=== PATIENT | male | born 1950 | race Two or more races ===

== ENCOUNTER → 2018-12-05 | Day surgery (SDC) | payer OTHER, MEDICAID ==
[2018-11-29 11:54] LABS: Basophils # (auto) 0 uL; Basophils % (auto) 0.7 % (0.0-2.0); Eosinophils # (auto) 0.2 uL; Eosinophils % (auto) 2.9 % (0.0-7.0); Hemoglobin 13.5 g/dL (13.5-17.5); Lymphocytes # (auto) 0.8 uL; Lymphocytes % (auto) 13.2 % (10.0-50.0); Mean Corpuscular Volume 81.7 fL (80.0-100.0); Monocytes # (auto) 0.4 uL; Monocytes % (auto) 7.1 % (0.0-12.0); Neutrophils # (auto) 4.7 uL; Neutrophils % (auto) 76.1 % (37.0-80.0); Platelet Count (auto) 162 10^3/uL (140-450); Red Blood Cells 5.02 10^6/uL (4.5-5.90); Red Cell Distribution Width 14.3 % (11.8-14.3); White Blood Cell 6.2 10^3/uL (4.4-10.8)
[2018-11-29 11:57] LABS: Urine Bacteria NONE SEEN /hpf (None Seen); Urine Blood TRACE /uL (Negative); Urine Hyaline Cast MOD /lpf (0 - 2); Urine Mucus FEW (None Seen); Urine Specific Gravity 1.025 (1.001-1.035); Urine WBC <1 /hpf (0 - 3)
[2018-11-29 12:10] LABS: INR 0.96 (0.9-1.15); Partial Thromboplastin Time 25.7 sec (23.64-32.05)
[2018-11-29 12:45] LABS: Potassium 3.8 mmol/L (3.5-5.1)
[2018-11-29 12:56] LABS: Bilirubin, Total 0.7 mg/dL (0.2-1.0); Calcium 8.8 mg/dL (8.5-10.1); Total Protein 7.4 g/dL (6.4-8.2)
[~2018-12-05] VITALS: Ht 172.7 cm; Wt 76.7 kg
[~2018-12-05] MED LIST: ASPI325T4 PO; FAMO-12 PO; GABA100C9 PO; HYDR-4833 PO; INSLANTI SC; MAGN400T5 OR; MIDAZOLAM HCL 1MG/1ML-2 ML VIAL ONE; NIFE30TA76 PO; ONDANSETRON HCL 4 MG/2 ML VIAL IV PRN; PROPOFOL 10 MG/ML 20 ML IV ONE; ROPIVACAINE 0.5% (5MG/ML) 20ML AMPULE IJ ONE; SUCCINYLCHOLINE CHLORIDE 20 MG/ML 10ML VIAL IV ONE; ceFAZolin 1GM/50ML 50 ML IV ONE; ePHEDrine SULFATE 50 MG/ML AMP IV PRN; fentaNYL CITRATE 100 MCG/2 ML VL IV ONE; fentaNYL CITRATE 100 MCG/2 ML VL IV PRN; fentaNYL CITRATE 100 MCG/2 ML VL ONE; hydrALAZINE HCL 20 MG/ML VL IV PRN; methylPREDNISolone ACETATE 80 MG/ML VL ONE
[2018-12-05 08:50] VITALS: BP 143/82
== END | disposition home or self-care (01) ==
LOC: SUR 06:02
PROVIDERS: ATTEND Podiatrist Foot & Ankle Surgery
DX: M72.2 Plantar fascial fibromatosis (principal); M21.6X2 Other acquired deformities of left foot; I10 Essential (primary) hypertension; E11.9 Type 2 diabetes mellitus without complications; F17.210 Nicotine dependence, cigarettes, uncomplicated; Z98.890 Other specified postprocedural states; Z79.84 Long term (current) use of oral hypoglycemic drugs; Z86.73 Personal history of transient ischemic attack (TIA), and cerebral infarction without residual deficits; Z79.4 Long term (current) use of insulin
CPT/HCPCS: 29893; 29999; 36415; 80053; 81001; 82962; 85025; 85610; 85730; J0330; J0690; J1040; J2250; J2704; J2795; J3010

== ENCOUNTER 2023-03-03 08:26 | Inpatient (IN) | payer OTHER, MEDICAID ==
[~2023-03-03] VITALS: Ht 172.7 cm; Wt 65.6 kg
[~2023-03-03 08:26] MED LIST changes: -ASPI325T4 PO; +GABA-1308 PO; -GABA100C9 PO; -HYDR-4833 PO; +HYDR-531 PO; +HYDR25TA5 PO; +MAGN400T40 PO; -MAGN400T5 OR; -MIDAZOLAM HCL 1MG/1ML-2 ML VIAL ONE; +NIFE1TAB31 PO; -NIFE30TA76 PO; -ONDANSETRON HCL 4 MG/2 ML VIAL IV PRN; -PROPOFOL 10 MG/ML 20 ML IV ONE; -ROPIVACAINE 0.5% (5MG/ML) 20ML AMPULE IJ ONE; -SUCCINYLCHOLINE CHLORIDE 20 MG/ML 10ML VIAL IV ONE; -ceFAZolin 1GM/50ML 50 ML IV ONE; -ePHEDrine SULFATE 50 MG/ML AMP IV PRN; -fentaNYL CITRATE 100 MCG/2 ML VL IV ONE; -fentaNYL CITRATE 100 MCG/2 ML VL IV PRN; -fentaNYL CITRATE 100 MCG/2 ML VL ONE; -hydrALAZINE HCL 20 MG/ML VL IV PRN; -methylPREDNISolone ACETATE 80 MG/ML VL ONE
[2023-03-03 08:40] VITALS: PULSE 62; RESP 13
[2023-03-03] MEDS ORDERED: D5W 5% 1,000 ML IV ONE (08:45)
[2023-03-03 09:26] LABS: Basophils # (auto) 0 10 ^3/uL (0-0.2); Basophils % (auto) 0.2 % (0.0-2.0); Eosinophils # (auto) 0 10 ^3/uL (0-0.8); Eosinophils % (auto) 0.1 % (0.0-7.0); Hematocrit 37.9 % (41.0-53.0); Hemoglobin 12.1 g/dL (13.5-17.5); Lymphocytes # (auto) 0.3 10 ^3/uL (0.4-5.4); Lymphocytes % (auto) 2.9 % (10.0-50.0); Mean Corpuscular Hemoglobin 27.6 pg (28.0-32.0); Mean Corpuscular Volume 86.4 fL (80.0-100.0); Monocytes # (auto) 0.3 10 ^3/uL (0-1.3); Monocytes % (auto) 3.3 % (0.0-12.0); Neutrophils # (auto) 8.9 10 ^3/uL (1.6-8.6); Neutrophils % (auto) 93.5 % (37.0-80.0); Red Blood Cells 4.39 10^6/uL (4.5-5.90); White Blood Cell 9.5 10^3/uL (4.4-10.8)
[2023-03-03 09:43] LABS: Alanine Aminotransferase 216 U/L (7-40); Albumin 3.5 g/dL (3.2-4.8); Alkaline Phosphatase 134 U/L (46-116); Anion Gap 8 (5-15); Aspartate Aminotransferase 32 U/L (13-40); BUN/Creatinine Ratio 6.9 (10.0-20.0); Bilirubin, Total 0.4 mg/dL (0.2-1.0); Blood Urea Nitrogen 14 mg/dL (9-23); Calcium 8.2 mg/dL (8.5-10.1); Carbon Dioxide 24 mmol/L (20-30); Chloride 111 mmol/L (98-107); Glucose 93 mg/dL (74-106); INR 1.25 (0.9-1.15); Potassium 3.5 mmol/L (3.5-5.1); Prothrombin Time 12.9 sec (9.3-11.8); Sodium 143 mmol/L (136-145); Total Protein 5.8 g/dL (5.7-8.2)
[2023-03-03 10:41] LABS: Magnesium 1.4 mg/dL (1.6-2.6)
[2023-03-03] MEDS ORDERED: DEXTROSE (50%) 50ML SYRG IV PRN (10:45)
[2023-03-03] MEDS ORDERED: ACETAMINOPHEN 325 MG TAB PO PRN (11:00)
[2023-03-03] MEDS ORDERED: SODIUM CHLORIDE 0.9% 1,000 ML IV ONE (11:00)
[2023-03-03] MEDS: SODIUM CHLORIDE 0.9% 1,000 ML IV SCH (11:00)
[2023-03-03] MEDS: ACCU-CHEK COMFORT CURVE STRIP VI SCH ×3 (11:30→21:52)
[2023-03-03] MEDS: InsuLIN REG 1unit/0.01ml Soln (100units/ml) SC SCH ×4 (11:30→22:00)
[2023-03-03] MEDS ORDERED: hydroCHLOROthiazide 25 MG TAB PO ONE (12:45)
[2023-03-03] MEDS ORDERED: MAGNESIUM OXIDE 400 MG TAB PO ONE (12:45)
[2023-03-03 13:15] LABS: Urine Bacteria FEW /hpf (None Seen); Urine Blood Negative /uL (Negative); Urine Clarity Clear (Clear); Urine Color Colorless (Yellow); Urine Protein, UAD TRACE (Negative); Urine Urobilinogen Normal (Negative); Urine WBC <1 /hpf (0 - 3); Urine pH 5.5 (5.0-8.0)
[2023-03-03 13:16] LABS: Protein, Urine 32.8 mg/dL (0.0-11.9)
[2023-03-03 13:19] LABS: Creatinine, Urine 53.73 mg/dL (30.0-125.0)
[2023-03-03] MEDS ORDERED: GABAPENTIN 100 MG CAP PO SCH (14:00)
[2023-03-03] MEDS: HYDROcodone-ACET 10/325MG TAB PO PRN ×4 (15:39→23:34)
[2023-03-03 19:30] VITALS: PULSE 82; RESP 14
[2023-03-03 19:47] VITALS: PULSE 82; RESP 14
[2023-03-03] MEDS ORDERED: HYDROcodone-ACET 10/325MG TAB PO PRN (20:45)
[2023-03-03] MEDS ORDERED: GABAPENTIN 400 MG CAP PO SCH (22:00)
[2023-03-03] MEDS: GABAPENTIN 300 MG CAP PO SCH (22:03)
[2023-03-03] MEDS: FAMOTIDINE 20 MG TAB PO SCH (22:03)
[2023-03-04] MEDS: ACCU-CHEK COMFORT CURVE STRIP VI SCH ×11 (02:01→22:03)
[2023-03-04] MEDS: SODIUM CHLORIDE 0.9% 1,000 ML IV SCH ×2 (03:48→22:03)
[2023-03-04 04:51] LABS: Basophils # (auto) 0 10 ^3/uL (0-0.2); Basophils % (auto) 0.7 % (0.0-2.0); Eosinophils # (auto) 0.2 10 ^3/uL (0-0.8); Eosinophils % (auto) 3.3 % (0.0-7.0); Hematocrit 33.8 % (41.0-53.0); Hemoglobin 11.2 g/dL (13.5-17.5); Lymphocytes # (auto) 0.6 10 ^3/uL (0.4-5.4); Lymphocytes % (auto) 12.7 % (10.0-50.0); Mean Corpuscular Hemoglobin 28.3 pg (28.0-32.0); Mean Corpuscular Hgb Conc. 33.3 g/dL (32.0-36.0); Monocytes # (auto) 0.3 10 ^3/uL (0-1.3); Monocytes % (auto) 6.5 % (0.0-12.0); Neutrophils # (auto) 3.6 10 ^3/uL (1.6-8.6); Neutrophils % (auto) 76.8 % (37.0-80.0); Red Blood Cells 3.97 10^6/uL (4.5-5.90); Red Cell Distribution Width 15.3 % (11.8-14.3); White Blood Cell 4.8 10^3/uL (4.4-10.8)
[2023-03-04] MEDS: HYDROcodone-ACET 10/325MG TAB PO PRN ×3 (06:03→17:38)
[2023-03-04] MEDS: InsuLIN REG 1unit/0.01ml Soln (100units/ml) SC SCH ×4 (06:30→22:00)
[2023-03-04 08:30] VITALS: PULSE 85; RESP 16; O2SAT 98
[2023-03-04 08:52] LABS: Chloride 111 mmol/L (98-107); Potassium 3.2 mmol/L (3.5-5.1); Sodium 144 mmol/L (136-145)
[2023-03-04 08:53] LABS: Anion Gap 4 (5-15); Carbon Dioxide 29 mmol/L (20-30)
[2023-03-04 08:58] LABS: Blood Urea Nitrogen 14 mg/dL (9-23); Glucose 128 mg/dL (74-106)
[2023-03-04] MEDS: NIFEdipine ER 30 MG TAB PO SCH (10:47)
[2023-03-04] MEDS: MAGNESIUM OXIDE 400 MG TAB PO SCH (10:48)
[2023-03-04] MEDS: FAMOTIDINE 20 MG TAB PO SCH ×2 (10:48→22:03)
[2023-03-04] MEDS: hydroCHLOROthiazide 25 MG TAB PO SCH (10:48)
[2023-03-04] MEDS: ENOXAPARIN SOD 40 MG/0.4 ML SYRINGE SC SCH (10:48)
[2023-03-04 18:11] VITALS: BP 146/81; PULSE 76; RESP 18; TEMP 97.9; O2SAT 96
[2023-03-04 20:00] VITALS: PULSE 67
[2023-03-04 22:00] VITALS: BP 128/79; PULSE 72; RESP 18; O2SAT 98
[2023-03-04] MEDS: GABAPENTIN 300 MG CAP PO SCH (22:02)
[2023-03-05] MEDS: ACCU-CHEK COMFORT CURVE STRIP VI SCH ×7 (00:01→11:22)
[2023-03-05 05:00] VITALS: BP 137/81; PULSE 67; RESP 18; O2SAT 99
[2023-03-05 05:15] VITALS: TEMP 97.9
[2023-03-05] MEDS: InsuLIN REG 1unit/0.01ml Soln (100units/ml) SC SCH ×2 (06:14→11:22)
[2023-03-05] MEDS: HYDROcodone-ACET 10/325MG TAB PO PRN ×2 (06:15)
[2023-03-05 08:00] VITALS: PULSE 66
[2023-03-05 09:00] VITALS: BP_SYST 154; BP_SYST 161; BP_SYST 98; BP_DIAS 63; BP_DIAS 71; BP_DIAS 80; PULSE 67; PULSE 72; PULSE 84; RESP 18; TEMP 97.8; O2SAT 100; O2SAT 99
[2023-03-05] MEDS: NIFEdipine ER 30 MG TAB PO SCH (10:00)
[2023-03-05] MEDS: FAMOTIDINE 20 MG TAB PO SCH (10:12)
[2023-03-05] MEDS: MAGNESIUM OXIDE 400 MG TAB PO SCH (10:12)
[2023-03-05] MEDS: ENOXAPARIN SOD 40 MG/0.4 ML SYRINGE SC SCH (10:12)
[2023-03-05] MEDS: hydroCHLOROthiazide 25 MG TAB PO SCH (10:12)
[2023-03-05 11:32] LABS: Chloride 106 mmol/L (98-107); Potassium 3.5 mmol/L (3.5-5.1); Sodium 140 mmol/L (136-145)
[2023-03-05 11:33] LABS: Anion Gap 2 (5-15); Calcium 8.3 mg/dL (8.5-10.1); Carbon Dioxide 32 mmol/L (20-30)
[2023-03-05 11:34] VITALS: BP 154/80; TEMP 36.6
[2023-03-05 11:38] LABS: BUN/Creatinine Ratio 10.9 (10.0-20.0); Blood Urea Nitrogen 15 mg/dL (9-23); Glucose 125 mg/dL (74-106)
[2023-03-05] MEDS: SODIUM CHLORIDE 0.9% 1,000 ML IV SCH (12:35)
== END 2023-03-05 12:55 | disposition home or self-care (01) | DRG 639 ==
LOC: EDBD 08:26 → ER 08:26 → TELE 10:56 → TELE-WESTW 03-04 18:48
PROVIDERS: ADMIT Nurse Practitioner Family; ATTEND Nurse Practitioner Family
DX: E11.649 Type 2 diabetes mellitus with hypoglycemia without coma (principal); N17.9 Acute kidney failure, unspecified; I12.9 Hypertensive chronic kidney disease with stage 1 through stage 4 chronic kidney disease, or unspecified chronic kidney disease; E11.22 Type 2 diabetes mellitus with diabetic chronic kidney disease; N18.32 Chronic kidney disease, stage 3b; K80.20 Calculus of gallbladder without cholecystitis without obstruction; E78.00 Pure hypercholesterolemia, unspecified; E11.42 Type 2 diabetes mellitus with diabetic polyneuropathy; Z79.4 Long term (current) use of insulin; Z86.73 Personal history of transient ischemic attack (TIA), and cerebral infarction without residual deficits
CPT/HCPCS: 36415; 70450; 71045; 76705; 78582; 80048; 80053; 81001; 82570; 82962; 83036; 83735; 83930; 84156; 84300; 85025; 85379; 85610; 85730; 87086; 93306; 93886; 93971; 97163; G0378

== ENCOUNTER 2023-06-15 07:25 | Inpatient (IN) | payer OTHER, MEDICAID ==
[~2023-06-15] VITALS: Ht 182.9 cm; Wt 66.0 kg
[2023-06-15 07:55] VITALS: PULSE 86; RESP 15; O2SAT 93
[2023-06-15 08:20] LABS: Basophils # (auto) 0 10 ^3/uL (0-0.2); Basophils % (auto) 0.2 % (0.0-2.0); Eosinophils # (auto) 0 10 ^3/uL (0-0.8); Eosinophils % (auto) 0.1 % (0.0-7.0); Hemoglobin 12.4 g/dL (13.5-17.5); Lymphocytes # (auto) 0.5 10 ^3/uL (0.4-5.4); Mean Corpuscular Hemoglobin 28.4 pg (28.0-32.0); Mean Corpuscular Hgb Conc. 32.7 g/dL (32.0-36.0); Mean Corpuscular Volume 86.8 fL (80.0-100.0); Monocytes # (auto) 0.7 10 ^3/uL (0-1.3); Neutrophils # (auto) 4.9 10 ^3/uL (1.6-8.6); Neutrophils % (auto) 80.7 % (37.0-80.0); Nucleated Red Blood Cells % 0.1 %; Red Blood Cells 4.38 10^6/uL (4.5-5.90); Red Cell Distribution Width 15.9 % (11.8-14.3); White Blood Cell 6.1 10^3/uL (4.4-10.8)
[2023-06-15] MEDS: SODIUM CHLORIDE 0.9% 1,000 ML IV ONE (08:20)
[2023-06-15 08:21] LABS: Anion Gap 10 (5-15); Carbon Dioxide 23 mmol/L (20-30); Chloride 110 mmol/L (98-107); Potassium 3.5 mmol/L (3.5-5.1); Sodium 143 mmol/L (136-145)
[2023-06-15 08:22] LABS: Calcium 8.4 mg/dL (8.5-10.1)
[2023-06-15 08:27] LABS: BUN/Creatinine Ratio 18.5 (10.0-20.0); Blood Urea Nitrogen 55 mg/dL (9-23); Glucose 92 mg/dL (74-106)
[2023-06-15] MEDS ORDERED: DEXTROSE (50%) 50ML SYRG IV PRN (10:15)
[2023-06-15 10:59] LABS: INR 1.25 (0.9-1.15)
[2023-06-15 11:02] LABS: Phosphorus 4.7 mg/dL (2.4-5.1)
[2023-06-15 11:03] LABS: Base Excess -4.5 mmol/L (-2.0-2.0)
[2023-06-15] MEDS: SODIUM CHLORIDE 0.9% 1,000 ML IV SCH (11:10)
[2023-06-15] MEDS: cefTRIAXone 1GM/50ML D5W 50 ML IV ONE (11:21)
[2023-06-15] MEDS: PANTOPRAZOLE 40 MG/10 ML VIAL INJ IV ONE (11:23)
[2023-06-15 11:49] LABS: Creatinine, Urine 67.15 mg/dL (30.0-125.0)
[2023-06-15 11:51] LABS: Amphetamine Screen, Urine Neg (NEGATIVE)
[2023-06-15] MEDS: AZITHROMYCIN 500MG/ 250ML 250 ML IV ONE (11:52)
[2023-06-15 11:53] LABS: Barbiturate Scree,Urine Neg (NEGATIVE); Benzodiazephine Screen, Urine Neg (NEGATIVE); Cannabinoid Screen, Urine Neg (NEGATIVE); Cocaine Screen, Urine Neg (NEGATIVE); Opiate Scree,Urine Pos (NEGATIVE); Phencyclidine Screen, Urine Neg (NEGATIVE)
[2023-06-15 11:57] LABS: Urine Bacteria FEW /hpf (None Seen); Urine Blood TRACE /uL (Negative); Urine Budding Yeast MODERATE /hpf (None Seen); Urine Clarity Clear (Clear); Urine Color Light-Yellow (Yellow); Urine Protein, UAD TRACE (Negative); Urine Specific Gravity 1.014 (1.001-1.035); Urine Urobilinogen Normal (Negative); Urine WBC 1 /hpf (0 - 3); Urine pH 5.5 (5.0-9.0)
[2023-06-15] MEDS: InsuLIN REG 1unit/0.01ml Soln (100units/ml) SC SCH (12:00)
[2023-06-15] MEDS: ACCU-CHEK COMFORT CURVE STRIP VI SCH (12:11)
[2023-06-15 13:00] VITALS: BP 128/70; PULSE 82; RESP 18; TEMP 98.4; O2SAT 95
[2023-06-15 13:28] VITALS: BP 128/70; PULSE 82; RESP 18; TEMP 98.4; O2SAT 95
[2023-06-15 17:00] VITALS: BP 115/75; PULSE 75; RESP 18; TEMP 98.8; O2SAT 94
[2023-06-15] MEDS ORDERED: ASPI325T6 PO (17:58)
[2023-06-15 20:00] VITALS: PULSE 88; RESP 18; O2SAT 97
[2023-06-15 21:00] VITALS: BP 118/68; PULSE 86; RESP 18; TEMP 99.5; O2SAT 95
[2023-06-16] VITALS (7 sets, daily range): BP systolic 103–145; BP diastolic 60–95; PULSE 75–105; RESP 17–20; TEMP 98.5–99.2; O2SAT 90–99
[2023-06-16 07:42] LABS: Triglycerides 56 mg/dL (< 150)
[2023-06-16 07:43] LABS: LDL Cholesterol 8 mg/dL (< 100)
[2023-06-16 07:44] LABS: Cholesterol 57 mg/dL (< 200); HDL Cholesterol 34 mg/dL (40-59)
[2023-06-16 08:06] LABS: RPR Non Reactive (Non Reactive)
[2023-06-16] MEDS ORDERED: CYA100I PO (08:21)
[2023-06-16] MEDS ORDERED: EMPA1TAB3 PO (08:21)
[2023-06-16] MEDS ORDERED: GABA-1308 PO (08:21)
[2023-06-16] MEDS ORDERED: ATOR20TA PO (08:21)
[2023-06-16] MEDS ORDERED: AML5T PO (08:21)
[2023-06-16] MEDS ORDERED: CHOL400C7 PO (08:21)
[2023-06-16] MEDS: cefTRIAXone 1GM/50ML D5W 50 ML IV SCH (08:50)
[2023-06-16] MEDS: PANTOPRAZOLE 40 MG/10 ML VIAL INJ IV SCH (08:54)
[2023-06-16] MEDS: ENOXAPARIN SOD 30 MG/0.3 ML SYRINGE SC SCH (08:55)
[2023-06-16] MEDS: AZITHROMYCIN 500MG/ 250ML 250 ML IV SCH (08:55)
[2023-06-16] MEDS ORDERED: ENOXAPARIN SOD 40 MG/0.4 ML SYRINGE SC SCH (10:00)
[2023-06-16 13:14] LABS: Rapid Influenza A Negative (Negative); Rapid Influenza B Negative (Negative)
[2023-06-16 13:15] LABS: COVID19 ANTIGEN SOFIA FIA NEGATIVE (NEGATIVE)
[2023-06-16 14:02] LABS: Amphetamine Screen, Urine Neg (NEGATIVE); Barbiturate Scree,Urine Neg (NEGATIVE); Benzodiazephine Screen, Urine Neg (NEGATIVE); Cannabinoid Screen, Urine Neg (NEGATIVE); Cocaine Screen, Urine Neg (NEGATIVE); Opiate Scree,Urine Neg (NEGATIVE); Phencyclidine Screen, Urine Neg (NEGATIVE)
[2023-06-16] MEDS: LORazepam 2MG/ML-1ML VIAL IV PRN (16:44)
[2023-06-16] MEDS: FLECAINIDE ACETATE 50 MG TAB PO SCH (22:00)
[2023-06-16] MEDS: APIXABAN 2.5 MG TAB PO SCH (22:00)
[2023-06-16] MEDS: APIXABAN 2.5 MG TAB PO ONE (22:32)
[2023-06-16] MEDS: FLECAINIDE ACETATE 50 MG TAB PO ONE (22:34)
[2023-06-16] MEDS: METOPROLOL TARTRATE 25 MG TAB PO SCH (22:35)
[2023-06-16] MEDS: HALOPERIDOL LACTATE 5 MG/ML INJ VIAL IM PRN (22:46)
[2023-06-17] VITALS (8 sets, daily range): BP systolic 120–153; BP diastolic 63–92; PULSE 62–85; RESP 16–20; TEMP 97.8–99.2; O2SAT 93–98
[2023-06-17 06:42] LABS: Basophils # (auto) 0 10 ^3/uL (0-0.2); Basophils % (auto) 0.2 % (0.0-2.0); Eosinophils # (auto) 0.1 10 ^3/uL (0-0.8); Eosinophils % (auto) 1.2 % (0.0-7.0); Hematocrit 39.8 % (41.0-53.0); Lymphocytes # (auto) 0.6 10 ^3/uL (0.4-5.4); Lymphocytes % (auto) 7.9 % (10.0-50.0); Mean Corpuscular Hemoglobin 28.4 pg (28.0-32.0); Mean Corpuscular Hgb Conc. 32.7 g/dL (32.0-36.0); Mean Corpuscular Volume 86.8 fL (80.0-100.0); Monocytes # (auto) 0.5 10 ^3/uL (0-1.3); Monocytes % (auto) 6.8 % (0.0-12.0); Neutrophils # (auto) 6.3 10 ^3/uL (1.6-8.6); Neutrophils % (auto) 83.9 % (37.0-80.0); Red Blood Cells 4.59 10^6/uL (4.5-5.90); Red Cell Distribution Width 15.3 % (11.8-14.3); White Blood Cell 7.5 10^3/uL (4.4-10.8)
[2023-06-17 06:54] LABS: Alanine Aminotransferase 27 U/L (7-40); Alkaline Phosphatase 94 U/L (46-116); Anion Gap 11 (5-15); Blood Urea Nitrogen 22 mg/dL (9-23); Calcium 8.8 mg/dL (8.5-10.1); Carbon Dioxide 24 mmol/L (20-30); Chloride 111 mmol/L (98-107); Glucose 92 mg/dL (74-106); Potassium 2.7 mmol/L (3.5-5.1); Sodium 146 mmol/L (136-145)
[2023-06-17 06:55] LABS: Albumin 3.3 g/dL (3.2-4.8); Aspartate Aminotransferase 26 U/L (13-40); Bilirubin, Total 0.6 mg/dL (0.2-1.0); Total Protein 5.4 g/dL (5.7-8.2)
[2023-06-17] MEDS: MAGNESIUM SULFATE 1GM/100ML 100 ML IV ONE (13:06)
[2023-06-17] MEDS: POTASSIUM EFFERVESENT TAB 25 MEQ PO ONE (15:38)
[2023-06-17] MEDS: POTASSIUM CHLORIDE 40 MEQ, LIDOCAINE 1% (LOCAL ANESTH.) 4 ML in SODIUM CHL 0.9% 250 ML IV ONE (15:39)
[2023-06-17] MEDS: D5W/SOD CHL 0.45% 1,000 ML IV SCH (17:15)
[2023-06-17] MEDS: METOPROLOL TARTRATE 25 MG TAB PO SCH (22:16)
[2023-06-18] VITALS (8 sets, daily range): BP systolic 117–172; BP diastolic 72–90; PULSE 68–83; RESP 16–20; TEMP 98–99.2; O2SAT 95–99
[2023-06-18 06:33] LABS: Basophils # (auto) 0 10 ^3/uL (0-0.2); Basophils % (auto) 0.2 % (0.0-2.0); Eosinophils # (auto) 0.1 10 ^3/uL (0-0.8); Hematocrit 40.4 % (41.0-53.0); Hemoglobin 13.3 g/dL (13.5-17.5); Lymphocytes # (auto) 0.8 10 ^3/uL (0.4-5.4); Lymphocytes % (auto) 10.4 % (10.0-50.0); Mean Corpuscular Hemoglobin 27.8 pg (28.0-32.0); Mean Corpuscular Hgb Conc. 32.9 g/dL (32.0-36.0); Mean Corpuscular Volume 84.4 fL (80.0-100.0); Monocytes # (auto) 0.6 10 ^3/uL (0-1.3); Monocytes % (auto) 8.1 % (0.0-12.0); Neutrophils # (auto) 5.8 10 ^3/uL (1.6-8.6); Neutrophils % (auto) 80.3 % (37.0-80.0); Nucleated Red Blood Cells % 0.1 %; Red Blood Cells 4.79 10^6/uL (4.5-5.90); Red Cell Distribution Width 15.1 % (11.8-14.3); White Blood Cell 7.3 10^3/uL (4.4-10.8)
[2023-06-18 06:46] LABS: Anion Gap 6 (5-15); Carbon Dioxide 29 mmol/L (20-30); Chloride 107 mmol/L (98-107); Potassium 3.2 mmol/L (3.5-5.1); Sodium 142 mmol/L (136-145)
[2023-06-18 06:48] LABS: Calcium 8.1 mg/dL (8.7-10.4)
[2023-06-18 06:52] LABS: BUN/Creatinine Ratio 9.5 (10.0-20.0); Blood Urea Nitrogen 12 mg/dL (9-23); Glucose 105 mg/dL (74-106)
[2023-06-18 06:53] LABS: Magnesium 1.2 mg/dL (1.6-2.6)
[2023-06-18] MEDS: POTASSIUM EFFERVESENT TAB 25 MEQ PO ONE (12:18)
[2023-06-19] VITALS (13 sets, daily range): BP systolic 122–144; BP diastolic 68–86; PULSE 59–77; RESP 18–22; TEMP 98.1–98.9; O2SAT 93–99
[2023-06-19] MEDS: HYDROcodone-ACET 7.5/325MG TAB PO ONE (01:23)
[2023-06-19 06:48] LABS: Basophils # (auto) 0 10 ^3/uL (0-0.2); Basophils % (auto) 0.5 % (0.0-2.0); Eosinophils # (auto) 0.1 10 ^3/uL (0-0.8); Eosinophils % (auto) 1.6 % (0.0-7.0); Hematocrit 39.1 % (41.0-53.0); Hemoglobin 12.7 g/dL (13.5-17.5); Lymphocytes # (auto) 0.7 10 ^3/uL (0.4-5.4); Lymphocytes % (auto) 10.8 % (10.0-50.0); Mean Corpuscular Hemoglobin 27.6 pg (28.0-32.0); Mean Corpuscular Hgb Conc. 32.5 g/dL (32.0-36.0); Mean Corpuscular Volume 84.9 fL (80.0-100.0); Monocytes # (auto) 0.6 10 ^3/uL (0-1.3); Monocytes % (auto) 10.1 % (0.0-12.0); Neutrophils # (auto) 4.7 10 ^3/uL (1.6-8.6); Nucleated Red Blood Cells % 0.1 %
[2023-06-19 07:31] LABS: Protein, Urine 125.3 mg/dL (0.0-11.9)
[2023-06-19 07:34] LABS: Creatinine, Urine 113.03 mg/dL (30.0-125.0)
[2023-06-19 07:34] LABS: Anion Gap 6 (5-15); Calcium 8.1 mg/dL (8.5-10.1); Carbon Dioxide 30 mmol/L (20-30); Chloride 103 mmol/L (98-107); Potassium 3.5 mmol/L (3.5-5.1); Sodium 139 mmol/L (136-145)
[2023-06-19 07:39] LABS: Glucose 113 mg/dL (74-106)
[2023-06-19 07:41] LABS: BUN/Creatinine Ratio 4.8 (10.0-20.0); Blood Urea Nitrogen 7 mg/dL (9-23)
[2023-06-19] MEDS ORDERED: MIDAZOLAM HCL 2MG/2ML 2ml VIAL (1mg/ml) IV ONE (13:00)
[2023-06-19] MEDS ORDERED: LIDOCAINE VISCOUS 2% 15ML UD PO ONE (13:00)
[2023-06-19] MEDS ORDERED: fentaNYL CITRATE 100 MCG/2 ML VL IV ONE (13:00)
[2023-06-19] MEDS: MICAFUNGIN SODIUM 100 MG in SODIUM CHL 0.9% 100 ML IV ONE (14:59)
[2023-06-19] MEDS: HYDROcodone-ACET 10/325MG TAB PO PRN (21:21)
[2023-06-20] VITALS (8 sets, daily range): BP systolic 123–146; BP diastolic 60–89; PULSE 51–80; RESP 16–18; TEMP 97.4–98.1; O2SAT 95–99
[2023-06-20 07:17] LABS: Chloride 103 mmol/L (98-107); Potassium 3.2 mmol/L (3.5-5.1); Sodium 140 mmol/L (136-145)
[2023-06-20 07:18] LABS: Anion Gap 5 (5-15); Calcium 7.7 mg/dL (8.7-10.4); Carbon Dioxide 32 mmol/L (20-30)
[2023-06-20 07:23] LABS: BUN/Creatinine Ratio 6.7 (10.0-20.0); Blood Urea Nitrogen 10 mg/dL (9-23); Glucose 108 mg/dL (74-106)
[2023-06-20] MEDS: MICAFUNGIN SODIUM 100 MG in SODIUM CHL 0.9% 100 ML IV SCH (08:24)
[2023-06-20] MEDS: HYDROcodone-ACET 5/325MG TAB PO PRN (11:43)
[2023-06-20] MEDS: POTASSIUM CHL 20 Meq TABLET PO ONE (11:44)
[2023-06-21] VITALS (9 sets, daily range): BP systolic 124–139; BP diastolic 62–84; PULSE 52–69; RESP 18; TEMP 97.5–98.4; O2SAT 97–100
[2023-06-21 05:52] LABS: Triglycerides 58 mg/dL (< 150)
[2023-06-21 05:53] LABS: LDL Cholesterol 17 mg/dL (< 100)
[2023-06-21 05:54] LABS: Cholesterol 75 mg/dL (< 200); HDL Cholesterol 45 mg/dL (40-59)
[2023-06-21] MEDS: ATORVASTATIN 20 MG TAB PO SCH (22:20)
[2023-06-22 05:00] VITALS: BP 159/75; PULSE 66; RESP 18; TEMP 98.3; O2SAT 100
[2023-06-22] MEDS: hydrALAZINE HCL 20 MG/ML VL IV PRN (06:01)
[2023-06-22 08:00] VITALS: PULSE 74; RESP 18; O2SAT 96
[2023-06-22 08:23] VITALS: BP 139/79; PULSE 74; RESP 18; TEMP 98; O2SAT 96
[2023-06-22 08:40] VITALS: BP 139/79; PULSE 74; RESP 18; TEMP 98; O2SAT 96
[2023-06-22 12:31] VITALS: BP 138/79; PULSE 77; RESP 18; TEMP 98.1; O2SAT 97
== END 2023-06-22 13:50 | DRG 64 ==
LOC: EDBD 07:25 → ER 07:25 → OVERFLOW 10:20 → TELE-WESTW 12:38
PROVIDERS: ADMIT Nurse Practitioner Family; ATTEND Family Medicine
PROC: 05H933Z Insertion of Infusion Device into Right Brachial Vein, Percutaneous Approach (ICD-10-PCS; principal; 2023-06-21)
PROC: B54MZZA Ultrasonography of Right Upper Extremity Veins, Guidance (ICD-10-PCS; 2023-06-21)
DX: I63.29 Cerebral infarction due to unspecified occlusion or stenosis of other precerebral arteries (principal); G93.41 Metabolic encephalopathy; J96.01 Acute respiratory failure with hypoxia; J15.9 Unspecified bacterial pneumonia; J15.69 Pneumonia due to other Gram-negative bacteria; N17.9 Acute kidney failure, unspecified; E44.0 Moderate protein-calorie malnutrition; E87.0 Hyperosmolality and hypernatremia; E87.20 Acidosis, unspecified; Z68.1 Body mass index [BMI] 19.9 or less, adult; I13.0 Hypertensive heart and chronic kidney disease with heart failure and stage 1 through stage 4 chronic kidney disease, or unspecified chronic kidney disease; I50.30 Unspecified diastolic (congestive) heart failure; B37.49 Other urogenital candidiasis; R47.01 Aphasia; D69.6 Thrombocytopenia, unspecified; E78.00 Pure hypercholesterolemia, unspecified; I48.0 Paroxysmal atrial fibrillation; E11.22 Type 2 diabetes mellitus with diabetic chronic kidney disease; E11.51 Type 2 diabetes mellitus with diabetic peripheral angiopathy without gangrene; N18.9 Chronic kidney disease, unspecified; E11.40 Type 2 diabetes mellitus with diabetic neuropathy, unspecified; S20.211A Contusion of right front wall of thorax, initial encounter; W18.39XA Other fall on same level, initial encounter; S83.91XA Sprain of unspecified site of right knee, initial encounter; E11.649 Type 2 diabetes mellitus with hypoglycemia without coma; E87.6 Hypokalemia; F10.10 Alcohol abuse, uncomplicated; Y90.9 Presence of alcohol in blood, level not specified; Z20.822 Contact with and (suspected) exposure to COVID-19; F17.200 Nicotine dependence, unspecified, uncomplicated; K80.20 Calculus of gallbladder without cholecystitis without obstruction; F03.90 Unspecified dementia, unspecified severity, without behavioral disturbance, psychotic disturbance, mood disturbance, and anxiety; F14.10 Cocaine abuse, uncomplicated; F15.10 Other stimulant abuse, uncomplicated; Z86.73 Personal history of transient ischemic attack (TIA), and cerebral infarction without residual deficits; Z79.4 Long term (current) use of insulin; Y93.89 Activity, other specified; Y92.89 Other specified places as the place of occurrence of the external cause; Y99.8 Other external cause status; Z86.718 Personal history of other venous thrombosis and embolism; Z83.3 Family history of diabetes mellitus; Z82.49 Family history of ischemic heart disease and other diseases of the circulatory system; Z79.01 Long term (current) use of anticoagulants; I83.90 Asymptomatic varicose veins of unspecified lower extremity
CPT/HCPCS: 36415; 36600; 70450; 70551; 71045; 71111; 73502; 73562; 76775; 78582; 80048; 80053; 80061; 80307; 80320; 81001; 82306; 82570; 82607; 82805; 82962; 83036; 83735; 83880; 84100; 84156; 84300; 84443; 84484; 85025; 85379; 85610; 86592; 87040; 87086; 87088; 87426; 87804; 92507; 92610; 93005; 93306; 93886; 93970; 97110; 97116; 97163; 97530; 99152; C9113; G0378; J1815; J2001; J2248; J2250

== ENCOUNTER 2023-06-24 12:36 | Inpatient (IN) | payer OTHER, MEDICAID ==
[2023-06-24] VITALS (8 sets, daily range): BP systolic 118; BP diastolic 64; PULSE 56–73; RESP 15–22; TEMP 97.6; O2SAT 93–99
[~2023-06-24] VITALS: Ht 172.7 cm; Wt 71.0 kg
[~2023-06-24 12:36] MED LIST changes: +AML5T PO; +ASPI325T6 PO; +ATOR20TA PO; +CHOL400C7 PO; +CYA100I PO; +EMPA1TAB3 PO
[2023-06-24] MEDS: SODIUM CHLORIDE 0.9% 2,150 ML IV ONE (13:15)
[2023-06-24 13:34] LABS: Urine Bacteria None Seen /hpf (None Seen)
[2023-06-24 13:37] LABS: Base Excess 0.2 mmol/L (-2.0-2.0)
[2023-06-24 13:43] LABS: Basophils # (auto) 0 10 ^3/uL (0-0.2); Basophils % (auto) 0.3 % (0.0-2.0); Eosinophils # (auto) 0.1 10 ^3/uL (0-0.8); Eosinophils % (auto) 0.6 % (0.0-7.0); Hematocrit 35.8 % (41.0-53.0); Hemoglobin 11.8 g/dL (13.5-17.5); Lymphocytes # (auto) 0.8 10 ^3/uL (0.4-5.4); Lymphocytes % (auto) 7.2 % (10.0-50.0); Mean Corpuscular Volume 84.7 fL (80.0-100.0); Monocytes # (auto) 0.6 10 ^3/uL (0-1.3); Monocytes % (auto) 5.2 % (0.0-12.0); Neutrophils # (auto) 10.1 10 ^3/uL (1.6-8.6); Neutrophils % (auto) 86.7 % (37.0-80.0); Red Blood Cells 4.22 10^6/uL (4.5-5.90); Red Cell Distribution Width 14.6 % (11.8-14.3); White Blood Cell 11.7 10^3/uL (4.4-10.8)
[2023-06-24 13:55] LABS: Urine Blood 2+ /uL (Negative); Urine Clarity Clear (Clear); Urine Color Light-Yellow (Yellow); Urine Protein, UAD TRACE (Negative); Urine Specific Gravity 1.006 (1.001-1.035); Urine Urobilinogen Normal (Negative); Urine WBC 1 /hpf (0 - 3); Urine pH 5.5 (5.0-9.0)
[2023-06-24 13:58] LABS: INR 1.25 (0.9-1.15); Partial Thromboplastin Time 28.8 SEC (24.5-34.5)
[2023-06-24 14:03] LABS: Alanine Aminotransferase 21 U/L (7-40); Albumin 3.3 g/dL (3.2-4.8); Alkaline Phosphatase 91 U/L (46-116); Anion Gap 4 (5-15); Aspartate Aminotransferase 21 U/L (13-40); BUN/Creatinine Ratio 6.7 (10.0-20.0); Bilirubin, Total 0.6 mg/dL (0.2-1.0); Blood Urea Nitrogen 11 mg/dL (9-23); Calcium 7.6 mg/dL (8.5-10.1); Carbon Dioxide 31 mmol/L (20-30); Chloride 99 mmol/L (98-107); Glucose 155 mg/dL (74-106); Potassium 3.4 mmol/L (3.5-5.1); Total Protein 5.5 g/dL (5.7-8.2)
[2023-06-24 14:06] LABS: Sodium 134 mmol/L (136-145)
[2023-06-24] MEDS: IPRATROPIUM BROM 0.5 MG/2.5ML INH SOL HHN ONE (15:54)
[2023-06-24] MEDS: ALBUTEROL SULF 2.5 MG/0.5ML(0.5%) NEB SOLN HHN ONE (15:54)
[2023-06-24] MEDS: DexAMETHasone SOD PHOS 10MG/1ML VIAL INJ IV ONE (16:00)
[2023-06-24] MEDS ORDERED: NITROGLYCERIN 0.4 MG SL TAB SL PRN (16:15)
[2023-06-24] MEDS ORDERED: DEXTROSE (50%) 50ML SYRG IV PRN (16:15)
[2023-06-24] MEDS ORDERED: ALBUTEROL SULF 2.5 MG/0.5ML(0.5%) NEB SOLN NEB PRN (16:15)
[2023-06-24] MEDS ORDERED: MORPHINE SULFATE INJ 2 MG/ml SYRG IV PRN (16:15)
[2023-06-24] MEDS ORDERED: ACETAMINOPHEN 325 MG TAB PO PRN (16:15)
[2023-06-24] MEDS: SODIUM CHLORIDE 0.9% 1,000 ML IV SCH (16:46)
[2023-06-24] MEDS: cefTRIAXone 1GM/50ML D5W 50 ML IV ONE (16:47)
[2023-06-24] MEDS: AZITHROMYCIN 500MG/ 250ML 250 ML IV ONE (17:15)
[2023-06-24] MEDS: ALBUTEROL SULF 2.5 MG/0.5ML(0.5%) NEB SOLN NEB SCH (17:36)
[2023-06-24] MEDS: IPRATROPIUM BROM 0.5 MG/2.5ML INH SOL NEB SCH (17:36)
[2023-06-24] MEDS: ACCU-CHEK COMFORT CURVE STRIP VI SCH (17:42)
[2023-06-24] MEDS: InsuLIN REG 1unit/0.01ml Soln (100units/ml) SC SCH (17:44)
[2023-06-24] MEDS: POTASSIUM EFFERVESENT TAB 25 MEQ PO ONE (17:46)
[2023-06-24 17:54] LABS: COVID19 ANTIGEN SOFIA FIA NEGATIVE (NEGATIVE); Rapid Influenza A Negative (Negative); Rapid Influenza B Negative (Negative)
[2023-06-24] MEDS: MAGNESIUM SULFATE 1GM/100ML 100 ML IV SCH (17:54)
[2023-06-24 19:23] LABS: Amphetamine Screen, Urine Neg (NEGATIVE); Barbiturate Scree,Urine Neg (NEGATIVE); Benzodiazephine Screen, Urine Neg (NEGATIVE); Cannabinoid Screen, Urine Neg (NEGATIVE); Cocaine Screen, Urine Neg (NEGATIVE); Opiate Scree,Urine Neg (NEGATIVE); Phencyclidine Screen, Urine Neg (NEGATIVE)
[2023-06-24] MEDS: HYDROcodone-ACET 5/325MG TAB PO PRN (22:20)
[2023-06-24] MEDS: GABAPENTIN 300 MG CAP PO SCH (22:21)
[2023-06-24] MEDS: FAMOTIDINE 20 MG TAB PO SCH (22:24)
[2023-06-25] VITALS (22 sets, daily range): BP systolic 97–134; BP diastolic 50–63; PULSE 53–94; RESP 16–20; TEMP 97.6–98.5; O2SAT 89–100
[2023-06-25 03:47] LABS: Hemoglobin 12.4 g/dL (13.5-17.5); Mean Corpuscular Hemoglobin 27.5 pg (28.0-32.0); Mean Corpuscular Hgb Conc. 32.6 g/dL (32.0-36.0); Mean Corpuscular Volume 84.5 fL (80.0-100.0); Red Cell Distribution Width 14.4 % (11.8-14.3); White Blood Cell 22.8 10^3/uL (4.4-10.8)
[2023-06-25 03:50] LABS: Basophils % (manual) 0 (0.0-2.0); Blast Cells 0; Eosinophils % (manual) 0 (0-7); Lymphocytes % (manual) 0 (10.0-50.0); Metamyelocytes % 0; Myelocytes % 0; Promyelocytes % 0; Reactive Lymphocytes 0
[2023-06-25 04:08] LABS: Alanine Aminotransferase 19 U/L (7-40); Albumin 3.2 g/dL (3.2-4.8); Alkaline Phosphatase 85 U/L (46-116); Anion Gap 6 (5-15); Aspartate Aminotransferase 15 U/L (13-40); BUN/Creatinine Ratio 7.9 (10.0-20.0); Bilirubin, Total 0.4 mg/dL (0.2-1.0); Blood Urea Nitrogen 11 mg/dL (9-23); Calcium 8.1 mg/dL (8.7-10.4); Carbon Dioxide 27 mmol/L (20-30); Chloride 104 mmol/L (98-107); Glucose 138 mg/dL (74-106); Potassium 3.5 mmol/L (3.5-5.1); Sodium 137 mmol/L (136-145); Total Protein 5.4 g/dL (5.7-8.2)
[2023-06-25 04:36] LABS: Band Neutrophils % (manual) 3; Monocytes % (manual) 1 (0-12); Platelet Estimate Adequate; RBC Morphology Normal
[2023-06-25 05:22] LABS: Protein, Urine 24.6 mg/dL (0.0-11.9)
[2023-06-25 05:25] LABS: Creatinine, Urine 51.37 mg/dL (30.0-125.0); Urine Protein/Creatinine Ratio 0.48
[2023-06-25] MEDS: cefTRIAXone 1GM/50ML D5W 50 ML IV SCH (08:39)
[2023-06-25] MEDS: MAGNESIUM OXIDE 400 MG TAB PO SCH (08:41)
[2023-06-25] MEDS: EMPAGLIFLOZIN 10 MG TAB PO SCH (08:41)
[2023-06-25] MEDS: amLODIPine BESYLATE 5 MG TAB PO SCH (08:47)
[2023-06-25] MEDS: ATORVASTATIN 20 MG TAB PO SCH (08:48)
[2023-06-25] MEDS: hydroCHLOROthiazide 25 MG TAB PO SCH (08:48)
[2023-06-25] MEDS: ASPirin-EC 81 mg tab PO SCH (08:49)
[2023-06-25] MEDS: CHOLECALCIFEROL (VITD3) 1,000UNIT=25mCg TAB PO SCH (10:00)
[2023-06-25] MEDS ORDERED: NIFEdipine ER 30 MG TAB PO SCH (10:00)
[2023-06-25] MEDS ORDERED: AZITHROMYCIN 500MG/ 250ML 250 ML IV SCH (10:00)
[2023-06-25] MEDS ORDERED: IRBE300T79 PO (11:13)
[2023-06-25] MEDS ORDERED: INSU1INJ19 SC (11:13)
[2023-06-25] MEDS: DOXYCYCLINE 100MG/250ML 250 ML IV SCH (12:15)
[2023-06-25] MEDS: MAGNESIUM SULFATE 1GM/100ML 100 ML IV SCH (12:47)
[2023-06-26] VITALS (24 sets, daily range): BP systolic 104–154; BP diastolic 59–98; PULSE 62–119; RESP 17–22; TEMP 97.8–98.7; O2SAT 95–100
[2023-06-26 05:42] LABS: Basophils # (auto) 0 10 ^3/uL (0-0.2); Basophils % (auto) 0.1 % (0.0-2.0); Eosinophils # (auto) 0 10 ^3/uL (0-0.8); Eosinophils % (auto) 0.2 % (0.0-7.0); Hematocrit 36.4 % (41.0-53.0); Hemoglobin 11.6 g/dL (13.5-17.5); Lymphocytes # (auto) 0.7 10 ^3/uL (0.4-5.4); Lymphocytes % (auto) 3.8 % (10.0-50.0); Mean Corpuscular Hemoglobin 27.3 pg (28.0-32.0); Mean Corpuscular Volume 85.5 fL (80.0-100.0); Monocytes # (auto) 0.7 10 ^3/uL (0-1.3); Monocytes % (auto) 3.3 % (0.0-12.0); Neutrophils # (auto) 18.5 10 ^3/uL (1.6-8.6); Neutrophils % (auto) 92.6 % (37.0-80.0); Red Blood Cells 4.26 10^6/uL (4.5-5.90); Red Cell Distribution Width 15.1 % (11.8-14.3); White Blood Cell 19.9 10^3/uL (4.4-10.8)
[2023-06-26 06:00] LABS: Alanine Aminotransferase 20 U/L (7-40); Albumin 3.2 g/dL (3.2-4.8); Alkaline Phosphatase 86 U/L (46-116); Anion Gap 5 (5-15); Blood Urea Nitrogen 16 mg/dL (9-23); Calcium 8.8 mg/dL (8.7-10.4); Carbon Dioxide 28 mmol/L (20-30); Chloride 104 mmol/L (98-107); Glucose 118 mg/dL (74-106); Potassium 3.8 mmol/L (3.5-5.1); Sodium 137 mmol/L (136-145)
[2023-06-26 06:01] LABS: Aspartate Aminotransferase 13 U/L (13-40); Bilirubin, Total 0.4 mg/dL (0.2-1.0); Total Protein 5.5 g/dL (5.7-8.2)
[2023-06-26] MEDS: CEFEPIME 1GM/ 50ML 50 ML IV SCH (07:54)
[2023-06-26] MEDS: NICOTINE 21MG/24 HR TOPICAL PATCH TD SCH (10:00)
[2023-06-26] MEDS: HALOPERIDOL 1 MG TAB PO ONE (21:46)
[2023-06-27] VITALS (18 sets, daily range): BP systolic 106–165; BP diastolic 65–86; PULSE 70–97; RESP 16–18; TEMP 97.5–98.7; O2SAT 92–100
[2023-06-27 06:08] LABS: Basophils # (auto) 0 10 ^3/uL (0-0.2); Basophils % (auto) 0.3 % (0.0-2.0); Eosinophils # (auto) 0 10 ^3/uL (0-0.8); Eosinophils % (auto) 0.1 % (0.0-7.0); Hematocrit 37.1 % (41.0-53.0); Hemoglobin 12.3 g/dL (13.5-17.5); Lymphocytes # (auto) 0.5 10 ^3/uL (0.4-5.4); Lymphocytes % (auto) 4.3 % (10.0-50.0); Mean Corpuscular Hemoglobin 28.4 pg (28.0-32.0); Mean Corpuscular Hgb Conc. 33.1 g/dL (32.0-36.0); Mean Corpuscular Volume 85.7 fL (80.0-100.0); Monocytes # (auto) 0.5 10 ^3/uL (0-1.3); Monocytes % (auto) 4.6 % (0.0-12.0); Neutrophils # (auto) 10.6 10 ^3/uL (1.6-8.6); Neutrophils % (auto) 90.7 % (37.0-80.0); Red Blood Cells 4.33 10^6/uL (4.5-5.90); Red Cell Distribution Width 14.7 % (11.8-14.3); White Blood Cell 11.7 10^3/uL (4.4-10.8)
[2023-06-27 06:28] LABS: Alanine Aminotransferase 20 U/L (7-40); Albumin 3.4 g/dL (3.2-4.8); Alkaline Phosphatase 91 U/L (46-116); Anion Gap 7 (5-15); Aspartate Aminotransferase 18 U/L (13-40); BUN/Creatinine Ratio 9.7 (10.0-20.0); Bilirubin, Total 0.5 mg/dL (0.2-1.0); Blood Urea Nitrogen 14 mg/dL (9-23); Calcium 9.2 mg/dL (8.7-10.4); Carbon Dioxide 28 mmol/L (20-30); Chloride 103 mmol/L (98-107); Glucose 109 mg/dL (74-106); Potassium 4.4 mmol/L (3.5-5.1); Sodium 138 mmol/L (136-145); Total Protein 5.8 g/dL (5.7-8.2)
[2023-06-27] MEDS: HALOPERIDOL 1 MG TAB PO ONE (17:42)
[2023-06-27] MEDS: HALOPERIDOL LACTATE 5 MG/ML INJ VIAL IM PRN (23:41)
[2023-06-28] VITALS (17 sets, daily range): BP systolic 99–132; BP diastolic 62–77; PULSE 63–101; RESP 16–22; TEMP 97.4–98.7; O2SAT 93–100
[2023-06-28 06:37] LABS: Basophils # (auto) 0 10 ^3/uL (0-0.2); Basophils % (auto) 0.5 % (0.0-2.0); Eosinophils # (auto) 0 10 ^3/uL (0-0.8); Eosinophils % (auto) 0.2 % (0.0-7.0); Hematocrit 37.8 % (41.0-53.0); Hemoglobin 12.5 g/dL (13.5-17.5); Lymphocytes # (auto) 0.5 10 ^3/uL (0.4-5.4); Lymphocytes % (auto) 5.3 % (10.0-50.0); Mean Corpuscular Hemoglobin 28.1 pg (28.0-32.0); Mean Corpuscular Volume 85.3 fL (80.0-100.0); Monocytes # (auto) 0.5 10 ^3/uL (0-1.3); Red Blood Cells 4.43 10^6/uL (4.5-5.90)
[2023-06-28 06:45] LABS: Alanine Aminotransferase 22 U/L (7-40); Albumin 3.7 g/dL (3.2-4.8); Alkaline Phosphatase 95 U/L (46-116); Anion Gap 5 (5-15); Aspartate Aminotransferase 21 U/L (13-40); BUN/Creatinine Ratio 14.6 (10.0-20.0); Bilirubin, Total 0.5 mg/dL (0.2-1.0); Blood Urea Nitrogen 21 mg/dL (9-23); Calcium 9.1 mg/dL (8.5-10.1); Carbon Dioxide 32 mmol/L (20-30); Chloride 103 mmol/L (98-107); Glucose 101 mg/dL (74-106); Potassium 4.4 mmol/L (3.5-5.1); Sodium 140 mmol/L (136-145); Total Protein 5.8 g/dL (5.7-8.2)
[2023-06-28] MEDS: MORPHINE SULFATE INJ 2 MG/ml SYRG IV PRN (23:48)
[2023-06-29] VITALS (11 sets, daily range): BP systolic 110–116; BP diastolic 60–68; PULSE 68–93; RESP 16–24; TEMP 36.7; O2SAT 90–100
[2023-06-29] MEDS: HALOPERIDOL LACTATE 5 MG/ML INJ VIAL IM PRN (02:53)
== END 2023-06-29 14:49 | disposition hospice, home (50) | DRG 177 ==
LOC: EDBD 12:36 → ER 12:36 → TELE 16:06 → TELE-CENTR 06-25 06:38
PROVIDERS: ADMIT Internal Medicine; ATTEND Emergency Medicine
DX: J15.69 Pneumonia due to other Gram-negative bacteria (principal); G93.41 Metabolic encephalopathy; J96.01 Acute respiratory failure with hypoxia; N17.0 Acute kidney failure with tubular necrosis; J44.0 Chronic obstructive pulmonary disease with (acute) lower respiratory infection; J15.9 Unspecified bacterial pneumonia; E83.42 Hypomagnesemia; N18.9 Chronic kidney disease, unspecified; E11.22 Type 2 diabetes mellitus with diabetic chronic kidney disease; I12.9 Hypertensive chronic kidney disease with stage 1 through stage 4 chronic kidney disease, or unspecified chronic kidney disease; I48.91 Unspecified atrial fibrillation; F03.90 Unspecified dementia, unspecified severity, without behavioral disturbance, psychotic disturbance, mood disturbance, and anxiety; Z20.822 Contact with and (suspected) exposure to COVID-19; E78.5 Hyperlipidemia, unspecified; D63.1 Anemia in chronic kidney disease; F15.10 Other stimulant abuse, uncomplicated; Z79.01 Long term (current) use of anticoagulants; Z86.73 Personal history of transient ischemic attack (TIA), and cerebral infarction without residual deficits; Z79.899 Other long term (current) drug therapy; Z79.82 Long term (current) use of aspirin; Z79.84 Long term (current) use of oral hypoglycemic drugs; Z87.440 Personal history of urinary (tract) infections
CPT/HCPCS: 36415; 36600; 70450; 71045; 71101; 71250; 80053; 80307; 81001; 82306; 82570; 82805; 82962; 83605; 83735; 83880; 83970; 84100; 84156; 84300; 84484; 85007; 85025; 85027; 85610; 85730; 87040; 87426; 87804; 92610; 93005; 94640; 94667; 94668; 96365; 96367; 96368; 96375; G0378; J1100; J1815; J3490